=== PATIENT | female | born 1960 | race Caucasian/White ===

== ENCOUNTER 2017-10-07 13:33 | Emergency (ER) | payer SELFPAY ==
[~2017-10-07] VITALS: Ht 170.2 cm; Wt 72.7 kg
[~2017-10-07 13:33] MED LIST: [UNRECOGNIZED DRUG - OTHER] PO
[2017-10-07 13:41] VITALS: BP 151/72; PULSE 87; RESP 18; TEMP 98.2; O2SAT 98
--- NOTE | 2017-10-07 14:22 | RADRPT ---
EXAM DATE/TIME: 10/07/2017 14:07 [place] COMPARISON: No previous studies available for comparison. INDICATIONS : Fell on shoulder pain with deformity and loss of motion. MEDICAL HISTORY : None. SURGICAL HISTORY : None. ENCOUNTER: Initial ACUITY: 1 day PAIN SCORE: 10/10 LOCATION: Right shoulder. FINDINGS: Multiple view examination of the right shoulder demonstrates fracture of the humeral neck/proximal sh aft. Mild degenerative changes. No dislocation. CONCLUSION: Fracture or humeral neck/proximal shaft. Daquan Garcia MD on October 07, 2017 at 14:19 Board Certified Radiologist. This report was verified electronically.
[2017-10-07] MEDS ORDERED: NORC5TAB PO (15:23)
--- NOTE | 2017-10-07 15:23 | PD ---
HPI Chief Complaint: Injury Time Seen by Provider: 14:32 Travel History International Travel<30 days: No Contact w/Intl Traveler<30days: No Traveled to known affect area: No History of Present Illness HPI This is a 57-year-old female here with right shoulder pain after she slipped and fell while shopping at [facility] today. She denies head injury or loss of consciousness. She denies any other injury. She reports she fell from a standing position landing on her knees and right shoulder. She denies paresthesia or weakness of the extremity. Symptom severity is moderate. Worse with movement and relieved with rest. PFSH Past Medical History Arthritis: Yes Neurologic: Yes (CARPAL TUNNEL BILATERALLY. NEUROPATHY BOTH FEET) Past Surgical History Section: Yes Gynecologic Surgery: Yes (C SECTION) Social History Alcohol Use: Yes (OCASIONALLY) Tobacco Use: No Allergies-Medications (Allergen,Severity, Reaction): Coded Allergies: codeine (Unverified Allergy, Mild, N/V, 10/07/17) Reported Meds & Prescriptions Reported Meds & Active Scripts Active Reported [Floxydoil] PO DIRECTED Review of Systems Except as stated in HPI: all other systems reviewed are Neg General / Constitutional: No: Fever Eyes: No: Visual changes HENT: No: Headaches Cardiovascular: No: Chest Pain or Discomfort Respiratory: No: Shortness of Breath Gastrointestinal: No: Abdominal Pain Genitourinary: No: Dysuria Musculoskeletal: Positive: Pain (right shoulder) Skin: No Rash Physical Exam Narrative GENERAL: Alert and well-appearing 57-year-old female. SKIN: Warm and dry. HEAD: Atraumatic. Normocephalic. EYES: Pupils equal and round. No scleral icterus. No injection or drainage. ENT: No nasal bleeding or discharge. Mucous membranes pink and moist. NECK: Trachea midline. No JVD. No cervical midline tenderness. CARDIOVASCULAR: Regular rate and rhythm. Chest wall tenderness. RESPIRATORY: No accessory muscle use. Clear to auscultation. Breath sounds equal bilaterally. GASTROINTESTINAL: Abdomen soft, non-tender, nondistended. MUSCULOSKELETAL: Extremities without clubbing, cyanosis. No obvious deformities. Tenderness and swelling to the proximal humerus. 2+ brachial and radial pulse. Normal sensation distally. Brisk cap refill. Patient can freely move all fingers. NEUROLOGICAL: Awake and alert. No obvious cranial nerve deficits. Motor grossly within normal limits. Five out of 5 muscle strength in the arms and legs. Normal speech. PSYCHIATRIC: Appropriate mood and affect; insight and judgment normal. Data Data Last Documented VS Vital Signs Date Time Temp Pulse Resp B/P (MAP) Pulse Ox O2 Delivery O2 Flow Rate FiO2 10/07/17 13:41 98.2 87 18 151/72 (98) 98 Room Air Orders Orders Shoulder, Complete (>2vws) (10/07/17 ) Sling And Swathe (10/07/17 ) [facility] Medical Decision Making Medical Screen Exam Complete: Yes Emergency Medical Condition: Yes Differential Diagnosis Fracture, dislocation, contusion Narrative Course This is a 57-year-old female here with right shoulder pain after she fell from a standing position today. Her physical exam is benign with the exception of her right upper extremity. The extremity is neurovascularly intact. On x-ray she has a minimally displaced humeral neck fracture. Patient was placed in a sling and swath. Mandatory referral for orthopedic follow-up. She was offered pain medication here in the ED and declined. She will be given a perception. Return precautions were discussed. Patient verbalizes understanding and agrees to plan Diagnosis Primary Impression: Fx humeral neck Qualified Codes: S42.211A - Unspecified displaced fracture of surgical neck of right humerus, initial encounter for closed fracture Referrals: Chalo Wilson MD Orthopedist Additional Instructions: The sling at all times. Pain medication as prescribed. Hospital will be calling to set up a mandatory referral with orthopedic. Return to emergency department if he developed new or worsening symptoms. Scripts Hydrocodone-Acetaminophen ([place]) 5 Mg-325 Mg Tab 1 TAB PO Q6H Y for PAIN, #12 TAB 0 Refills Prov: Melissa Uriostegui 10/07/17 Disposition: 01 DISCHARGE HOME Condition: Stable Melissa Uriostegui Oct 07, 2017 15:23
== END 2017-10-07 15:33 | disposition home or self-care (01) ==
LOC: NEPK 13:33
DX: S42.211A Unspecified displaced fracture of surgical neck of right humerus, initial encounter for closed fracture (principal); W01.0XXA Fall on same level from slipping, tripping and stumbling without subsequent striking against object, initial encounter; Y93.89 Activity, other specified; Y92.512 Supermarket, store or market as the place of occurrence of the external cause
CPT/HCPCS: 29240; 73030